=== PATIENT | female | born 1955 | race Caucasian/White ===

== ENCOUNTER 2023-01-17 00:59 | Emergency (ER) | payer OTHER ==
[~2023-01-17] VITALS: Ht 170.2 cm; Wt 108.9 kg
[2023-01-17 02:20] VITALS: BP 146/82; PULSE 71; RESP 18; TEMP 98.3; O2SAT 99
== END 2023-01-17 02:21 | disposition home or self-care (01) ==
LOC: ER 01:12
DX: S60.444A External constriction of right ring finger, initial encounter (principal); W49.04XA Ring or other jewelry causing external constriction, initial encounter; Y92.009 Unspecified place in unspecified non-institutional (private) residence as the place of occurrence of the external cause
CPT/HCPCS: 99283